=== PATIENT | male | born 1975 | race Two or more races ===

== ENCOUNTER 2017-09-13 20:29 | Emergency (ER) | payer MEDICAID, SELFPAY ==
[2017-09-13 20:30] VITALS: BP 142/92; PULSE 82; RESP 17; TEMP 36.7; O2SAT 99; BMI 38.0
== END 2017-09-13 21:28 | disposition left against medical advice (07) ==
LOC: ED 21:23
PROVIDERS: Emergency Provider Emergency Medicine
DX: R69 Illness, unspecified (principal)